=== PATIENT | female | born 1980 | race American Indian/Alaskan Native ===

== ENCOUNTER 2019-10-17 08:46 | Emergency (ER) | payer SELFPAY ==
[2019-10-17 08:55] VITALS: BP 147/80
--- NOTE | 2019-10-17 11:38 | Emergency Department Report ---
Chief Complaint: Urogenital-Female Stated Complaint: LUMP ON BREAST Time Seen by Provider: 10/17/19 11:16 - HPI History of Present Illness: Patient is a 39-year-old female presents emergency room with complaints of a lump to her left breast that began a couple days ago. She states she hasn't seen TELEVISION REPORTER in approximately a year. She states she had a normal mammogram in 2016. She denies any skin changes, erythema, increased warmth, drainage, nipple discharge, blood from the nipple. She denies any family history of breast cancer. She denies any past medical history. She denies any allergies medications. She states her last menstrual cycle was 09/24/2019. BRISEYDA hernandez RN present during examination left breast: 1.5 cm nodule present directly underneath the nipple, no nipple retraction, no nipple discharge, no Peau d'orange, no increased warmth, no erythema, no induration, no TTP, normal left axilla Patient will be referred to an TELEVISION REPORTER to receive mammogram testing There is no medical emergency at this time, medical screening examination performed Could be related to a fibroadenoma versus nodule, discussed the importance of mammogram testing with the patient - Exam Vital Signs: Vital Signs 10/17/19 08:54 Temperature 98.5 F Pulse Rate 81 Respiratory 16 Rate Blood Pressure 147/80 O2 Sat by Pulse 100 Oximetry MSE screening note: Focused history and physical exam performed. Due to findings the following was ordered: ED Disposition for MSE Clinical Impression: Breast nodule Disposition: Z-[id number] [facility] SCREENING EXAM-LEFT Is pt being admited?: No Does the pt Need Aspirin: No Condition: Stable Additional Instructions: Please follow up with an TELEVISION REPORTER to receive mammogram testing. It is very important that you follow-up. Return to the emergency room for any new or worsening symptoms. Referrals: [facility] [Provider Group] - 2-3 Days [facility] [Provider Group] - 2-3 Days [facility] [Provider Group] - 2-3 Days CARMINE GILLESPIE MD [Staff Physician] - 2-3 Days Time of Disposition: 11:37 Print Language: SLOVAK
== END 2019-10-17 11:50 | disposition left against medical advice (07) ==
LOC: ED 08:46
DX: N63.0 Unspecified lump in unspecified breast (principal)
CPT/HCPCS: 99281

== ENCOUNTER 2022-03-02 11:12 | Inpatient (IN) | payer OTHER ==
[2022-03-02] MEDS ORDERED: ONDANSETRON 4 MG/2 ML INJ IV ONE (14:06)
[2022-03-02] MEDS ORDERED: MORPHINE 4 MG/1 ML INJ IV ONE (14:06)
[2022-03-02] MEDS ORDERED: SODIUM CHLORIDE 0.9% 1000 ML 1,000 ML IV ONE (14:06)
[2022-03-02 14:45] LABS: Basophils # (Auto) 0.1 K/mm3 (0.0-0.1); Basophils % (Auto) 1.2 % (0.0-1.8); Eosinophils # (Auto) 0.1 K/mm3 (0.0-0.4); Eosinophils % (Auto) 1.2 % (0.0-4.3); Hematocrit 29.9 % (30.3-42.9); Hemoglobin 9.2 gm/dl (10.1-14.3); Lymphocytes # (Auto) 2.1 K/mm3 (1.2-5.4); Lymphocytes % (Auto) 28.1 % (13.4-35.0); Mean Corpuscular HGB Conc 31 % (30-34); Mean Corpuscular Volume 73 fl (79-97); Monocytes # (Auto) 0.6 K/mm3 (0.0-0.8); Monocytes % (Auto) 7.6 % (0.0-7.3); Platelet Count 353 K/mm3 (140-440); Red Blood Count 4.11 M/mm3 (3.65-5.03); Red Cell Distribution Width 18.6 % (13.2-15.2)
[2022-03-02 15:11] LABS: Alanine Aminotransferase 9 units/L (7-56); Albumin 4.4 g/dL (3.9-5); BUN/Creatinine Ratio 14; Blood Urea Nitrogen 14 mg/dL (7-17); Hemolysis Index 4
[2022-03-02 15:13] LABS: Bilirubin,Direct < 0.2 mg/dL (0-0.2)
--- NOTE | 2022-03-02 16:23 | Cat Scan Report ---
CT ABDOMEN AND PELVIS WITH CONTRAST HISTORY: abd pain with nausea COMPARISON: None TECHNIQUE: Routine abdominal and pelvic CT exam performed following intravenous contrast administrat ion.. All CT scans at this location are performed using CT dose reduction for ALARA by means of autom ated exposure control. FINDINGS: CT ABDOMEN: Lung Bases: No significant abnormality. Liver: No significant abnormality. Biliary: Gallbladder is surgically absent. There is pneumobilia likely related to previous enterotomy . Spleen: No significant abnormality. Unenlarged. Pancreas: No significant abnormality. Adrenals: No significant abnormality. Kidneys: No significant abnormality. Lymphatics: No lymphadenopathy. Vasculature: No significant abnormality. Bowel/Peritoneum: There is mild distention of the proximal small bowel with transition to nondistende d bowel in the left mid abdomen. CT PELVIC: : No significant abnormality. Lymphatics: No lymphadenopathy. Osseous Structures: No aggressive appearing osseous lesions. Additional Findings: None IMPRESSION: 1. Mild proximal small bowel obstruction with transition point in the left midabdomen. No free air or pneumatosis. Signer Name: Nithin Mayes MD Signed: 03/02/2022 4:19 PM Workstation Name: [id number]
[2022-03-02] MEDS ORDERED: HYDROmorphone 1 MG/1 ML INJ IV ONE (16:26)
--- NOTE | 2022-03-02 16:31 | Emergency Department Report ---
ED Abdominal Pain HPI - General Chief Complaint: Abdominal Pain Stated Complaint: ABDOMINAL Time Seen by Provider: 03/02/22 14:01 Source: EMS Mode of arrival: Stretcher Limitations: No Limitations - History of Present Illness Initial Comments: This is a 41-year-old female nontoxic, well nourished in appearance, no acute signs of distress presents to the ED with c/o of nausea and abdominal pain that started this morning. Patient denies any vomiting. Patient describes abdominal pain as cramping and aching with level of 8/10 to left mid and upper abdomen area. Patient denies chest pain, short of breath, fever, hemoptysis, blood in stool, chills, headache, stiff neck, numbness or tingling. Patient denies any diarrhea or constipation. Denies any blood in stool. Patient denies any recent travels. Patient denies any allergies. MD Complaint: abdominal pain -: This morning Location: LUQ Radiation: none Migration to: no migration Severity: mild Severity scale (0 -10): 8 Quality: cramping, aching Consistency: constant Improves With: nothing Worsens With: nothing Associated Symptoms: nausea. denies: vomiting, diarrhea, fever, chills, cons tipation, dysuria, hematemesis, hematochezia, melena, hematuria, anorexia, syncope - Related Data Home Medications Medication Instructions Recorded Confirmed Last Taken No Known Home Medications [No 03/02/22 03/02/22 Unknown Reported Home Medications] Allergies Allergy/AdvReac Type Severity Reaction Status Date / Time No Known Allergies Allergy Verified 03/02/22 11:20 ED Review of Systems ROS: Stated complaint: ABDOMINAL Other details as noted in HPI Comment: All other systems reviewed and negative Constitutional: denies: chills, fever Eyes: denies: eye pain, eye discharge, vision change ENT: denies: ear pain, throat pain Respiratory: denies: cough, shortness of breath, wheezing Cardiovascular: denies: chest pain, palpitations Endocrine: no symptoms reported Gastrointestinal: abdominal pain, nausea. denies: vomiting, diarrhea, constipation, hematemesis, melena, hematochezia Genitourinary: denies: urgency, dysuria, discharge Musculoskeletal: denies: back pain, joint swelling, arthralgia Skin: denies: rash, lesions Neurological: denies: headache, weakness, paresthesias Psychiatric: denies: anxiety, depression Hematological/Lymphatic: denies: easy bleeding, easy bruising ED Past Medical Hx - Past Medical History Previous Medical History?: No - Surgical History Hx Appendectomy: Yes Additional Surgical History: gallstone removal - Social History Smoking Status: Never Smoker Substance Use Type: None - Medications Home Medications: Home Medications Medication Instructions Recorded Confirmed Last Taken Type No Known Home Medications [No 03/02/22 03/02/22 Unknown History Reported Home Medications] ED Physical Exam - General Limitations: No Limitations General appearance: alert, in no apparent distress - Head Head exam: Present: atraumatic, normocephalic - Eye Eye exam: Present: normal appearance - Neck Neck exam: Present: normal inspection, full ROM. Absent: lymphadenopathy - Respiratory Respiratory exam: Present: normal lung sounds bilaterally. Absent: respiratory distress, wheezes, rales, rhonchi, stridor, chest wall tenderness, accessory muscle use, decreased breath sounds, prolonged expiratory - Cardiovascular Cardiovascular Exam: Present: regular rate, normal rhythm, normal heart sounds. Absent: bradycardia, tachycardia, irregular rhythm, systolic murmur, diastolic murmur, rubs, gallop - GI/Abdominal GI/Abdominal exam: Present: tenderness (LUQ). Absent: distended, guarding, rebound, rigid, diminished bowel sounds - Extremities Exam Extremities exam: Present: full ROM - Back Exam Back exam: Present: normal inspection, full ROM. Absent: tenderness, CVA tenderness (R), CVA tenderness (L), muscle spasm, paraspinal tenderness, vertebral tenderness, rash noted - Neurological Exam Neurological exam: Present: alert, oriented X3, normal gait - Psychiatric Psychiatric exam: Present: normal affect, normal mood - Skin Skin exam: Present: warm, dry, intact, normal color. Absent: rash ED Course Vital Signs 03/02/22 03/02/22 11:13 14:06 Temperature 98.5 F 98.1 F Pulse Rate 92 H 66 Respiratory 16 18 Rate Blood Pressure 150/90 151/79 [Left] O2 Sat by Pulse 98 99 Oximetry - Reevaluation(s) Reevaluation #1: 03/02/22 16:28 Patient is speaking in full sentences with no signs of distress noted. - Consultations Consultation #1: 03/02/22 16:41 Patient has been consulted with Dr. Sanches about patient history, physical exam, and labs/imaging results and patient to be admitted with hospitalist on n.p.o. and NG tube on low suction. Consultation #2: 03/02/22 16:46 Patient has been consulted with Dr. Benoit (hospitalist) about patient history, physical exam, and labs/imaging results and accepts patient to services. ED Medical Decision Making - Lab Data Result diagrams: 03/02/22 14:32 03/02/22 14:32 Lab Results 03/02/22 03/02/22 03/02/22 Range/Units 14:32 14:32 14:32 WBC 7.6 (4.5-11.0) K/mm3 RBC 4.11 (3.65-5.03) M/mm3 Hgb 9.2 L (10.1-14.3) gm/dl Hct 29.9 L (30.3-42.9) % MCV 73 L (79-97) fl MCH 22 L (28-32) pg MCHC 31 (30-34) % RDW 18.6 H (13.2-15.2) % Plt Count 353 (140-440) K/mm3 Lymph % (Auto) 28.1 (13.4-35.0) % [place] % (Auto) 7.6 H (0.0-7.3) % Eos % (Auto) 1.2 (0.0-4.3) % Baso % (Auto) 1.2 (0.0-1.8) % Lymph # (Auto) 2.1 (1.2-5.4) K/mm3 [place] # (Auto) 0.6 (0.0-0.8) K/mm3 Eos # (Auto) 0.1 (0.0-0.4) K/mm3 Baso # (Auto) 0.1 (0.0-0.1) K/mm3 Seg Neutrophils % 61.9 (40.0-70.0) % Seg Neutrophils # 4.7 (1.8-7.7) K/mm3 Sodium 138 (137-145) mmol/L Potassium 4.2 (3.6-5.0) mmol/L Chloride 105.8 (98-107) mmol/L Carbon Dioxide 22 (22-30) mmol/L Anion Gap 14 mmol/L BUN 14 (7-17) mg/dL Creatinine 1.0 (0.6-1.2) mg/dL Estimated GFR > 60 ml/min BUN/Creatinine Ratio 14 % Glucose 91 (65-100) mg/dL Calcium 9.0 (8.4-10.2) mg/dL Total Bilirubin 0.20 (0.1-1.2) mg/dL Direct Bilirubin < 0.2 (0-0.2) mg/dL Indirect Bilirubin 0.0 mg/dL AST 13 (5-40) units/L ALT 9 (7-56) units/L Alkaline Phosphatase 73 (35-129) units/L Total Protein 7.7 (6.3-8.2) g/dL Albumin 4.4 (3.9-5) g/dL Albumin/Globulin Ratio 1.3 % Lipase 28 (13-60) units/L HCG, Qual Negative (Negative) - Radiology Data [facility] [address] [id number] Cat Scan Report Signed Patient: HOLLEY LLAMAS MR# : [id number] : 1980 Acct:[id number] Age/Sex: 41 / F ADM Date: 03/02/22 Loc: ED Attending Dr: Ordering Physician: GRACIA FISHMAN NP Date of Service: 03/02/22 Procedure(s): CT abdomen pelvis w con Accession Number(s): [id number] cc: GRACIA FISHMAN NP CT ABDOMEN AND PELVIS WITH CONTRAST HISTORY: abd pain with nausea COMPARISON: None TECHNIQUE: Routine abdominal and pelvic CT exam performed following intravenous contrast administration.. All CT scans at this location are performed using CT dose reduction for ALARA by means of automated exposure control. FINDINGS: CT ABDOMEN: Lung Bases: No significant abnormality. Liver: No significant abnormality. Biliary: Gallbladder is surgically absent. There is pneumobilia likely related to previous enterotomy. Spleen: No significant abnormality. Unenlarged. Pancreas: No significant abnormality. Adrenals: No significant abnormality. Kidneys: No significant abnormality. Lymphatics: No lymphadenopathy. Vasculature: No significant abnormality. Bowel/Peritoneum: There is mild distention of the proximal small bowel with transition to nondistended bowel in the left mid abdomen. CT PELVIC: : No significant abnormality. Lymphatics: No lymphadenopathy. Osseous Structures: No aggressive appearing osseous lesions. Additional Findings: None IMPRESSION: 1. Mild proximal small bowel obstruction with transition point in the left midabdomen. No free air or pneumatosis. Signer Name: Nithin Mayes MD Signed: 03/02/2022 4:19 PM Workstation Name: [id number] Transcribed By: YOLANDA Dictated By: Nithin Mayes MD Electronically Authenticated By: Nithin Mayes MD Signed Date/Time: 03/02/221618 DD/ 17 TD/TT: - Medical Decision Making 41-year-old female that presents with small bowel obstruction. Patient is stable and was examined by me. Patient consulted with Dr. Sanches general surgery. NG tube has been placed by RN. Patient placed on n.p.o. Patient is notified of the CT and lab results with no questions noted by the patient. Patient admitted with hospitalist Dr. Benoit. Vital signs are stable at discharge. At time of admission, the patient does not seem toxic or ill in appearance. No acute signs of distress noted. Patient agrees to admission treatment plan of care. No further questions noted by the patient. Critical care attestation.: If time is entered above; I have spent that time in minutes in the direct care of this critically ill patient, excluding procedure time. ED Disposition Clinical Impression: Small bowel obstruction Disposition: ADMITTED INPATIENT Is pt being admited?: Yes Condition: Stable Instructions: Abdominal Pain (ED) Time of Disposition: 16:34
[2022-03-02] MEDS ORDERED: ACETAMINOPHEN 650 MG RECT SUPP PR PRN (16:46)
[2022-03-02] MEDS ORDERED: ALBUTEROL 2.5 MG/3 ML NEBU IH PRN (16:46)
[2022-03-02] MEDS ORDERED: ACETAMINOPHEN 325 MG TAB PO PRN ×2 (16:46→16:49)
[2022-03-02] MEDS ORDERED: HYDROmorphone 0.5 MG/0.5 ML INJ IV PRN ×2 (16:46→16:49)
--- NOTE | 2022-03-02 16:46 | History and Physical Report ---
History of Present Illness Chief complaint: My stomach hurts History of present illness: 41 YO Female with Obesity presents to ED for evaluation. Patient reports "my stomach hurts". Patient states that she experienced a sudden onset of abdominal pain that began this morning. Patient states that pain is 8/10, constant, localized to the epigastric area, crampy in nature, nonradiating. Patient acknowledges nausea, but denies vomiting. Patient acknowledges inability to tolerate oral intake. EMS was notified and upon arrival the patient was found to be in distress and subsequently transported to [facility] for further care and evaluation of the aforementioned symptoms. The patient was seen and evaluated in the emergency department. All lab and imaging studies reviewed. Patient underwent CT scan of the abdomen and pelvis and was found to have a small bowel obstruction complicated by intractable nausea vomiting. Patient admitted to medical floor due to increased risk of worsening symptoms and for medical sta bilization. Surgery team consulted in ED. Patient underwent NG tube placement for gastric decompression. Patient denies fever, chills, chest pain, palpitation, adductive cough, skin rash, recent contact, ingestion of food/water from new or different sources, hemoptysis, bright red blood per rectum, or known exposure to COVID-19. No prior admission for review. No medication listed at time of admission for reconciliation. Advanced care planning conducted in ED. Past History Past Medical History: other (See HPI) Past Surgical History: appendectomy Social history: , lives with family. denies: smoking, alcohol abuse, prescription drug abuse Family history: hypertension Medications and Allergies Allergies Allergy/AdvReac Type Severity Reaction Status Date / Time No Known Allergies Allergy Verified 03/02/22 11:20 Home Medications Medication Instructions Recorded Confirmed Last Taken Type No Known Home Medications [No 03/02/22 03/02/22 Unknown History Reported Home Medications] Review of Systems Constitutional: no weight loss, no fever, no chills, no sweats Ears, nose, mouth and throat: no ear pain, no tinnitis, no nose pain, no nasal discharge Breasts: no change in shape, no mass Cardiovascular: no chest pain, no orthopnea, no rapid/irregular heart beat, no edema, no lightheadedness Respiratory: no cough, no cough with sputum, no dyspnea on exertion Gastrointestinal: abdominal pain, nausea, no constipation, no hematemesis, no coffee ground emesis, no hematochezia Genitourinary Female: no pelvic pain, no flank pain, no dysuria, no urinary frequency, no urgency Rectal: no pain Musculoskeletal: no neck stiffness, no neck pain, no shooting arm pain, no arm numbness/tingling, no leg numbness/tingling Integumentary: no rash, no pruritis, no redness, no sores, no wounds Neurological: no head injury, no paralysis, no parathesias, no numbness, no syncope, no tremors, no lack of coordination Psychiatric: no anxiety, no change in sleep habits, no insomnia, no change in libido, no disorientation, no hallucinations Endocrine: no cold intolerance, no heat intolerance, no polyphagia, no excessive thirst, no polydipsia, no polyuria, no nocturia, no flushing Hematologic/Lymphatic: no easy bruising, no easy bleeding Allergic/Immunologic: no allergic rhinitis, no wheezing Exam - Constitutional Vitals: Temp Pulse Resp BP Pulse Ox 98.1 F 66 18 151/79 99 03/02/22 14:06 03/02/22 14:06 03/02/22 14:06 03/02/22 14:06 03/02/22 14:06 General appearance: Present: mild distress, obese - EENT Eyes: Present: PERRL ENT: hearing intact, clear oral mucosa - Neck Neck: Present: supple, normal ROM - Respiratory Respiratory effort: normal Respiratory: bilateral: CTA - Cardiovascular Heart Sounds: Present: S1 & S2. Absent: rub, click - Extremities Extremities: pulses symmetrical, No edema Peripheral Pulses: within normal limits - Abdominal General gastrointestinal: Present: soft, non-tender, tender, normal bowel sounds. Absent: hepatomegaly, splenomegaly, mass, hernia Female genitourinary: Present: normal - Integumentary Integumentary: Present: clear, warm, dry - Musculoskeletal Musculoskeletal: gait normal, strength equal bilaterally - Psychiatric Psychiatric: appropriate mood/affect, intact judgment & insight - Neurologic Neurologic: CNII-XII intact, moves all extremities Results - Labs CBC & Chem 7: 03/02/22 14:32 03/02/22 14:32 Labs: Abnormal lab results 03/02/22 Range/Units 14:32 Hgb 9.2 L (10.1-14.3) gm/dl Hct 29.9 L (30.3-42.9) % MCV 73 L (79-97) fl MCH 22 L (28-32) pg RDW 18.6 H (13.2-15.2) % [place] % (Auto) 7.6 H (0.0-7.3) % Assessment and Plan - Patient Problems (1) Small bowel obstruction Current Visit: No Status: Acute Plan to address problem: Surgery team consulted in ED, bowel rest, IV fluid resuscitation therapy, CT scan abdomen pelvis, serial abdominal exam, NG tube to low wall suction, pain control. Antiemetic therapy. (2) Obesity (BMI 30.0-34.9) Current Visit: Yes Status: Acute Plan to address problem: Balanced diet, increase physical activity discharge, outpatient pulmonary follow-up for sleep study, balanced diet, weight reduction. (3) Intractable nausea and vomiting Current Visit: Yes Status: Acute Plan to address problem: Antiemetic therapy, bowel rest, IV fluid resuscitation therapy. (4) DVT prophylaxis Current Visit: Yes Status: Acute (5) Advance care planning Current Visit: Yes Status: Acute Plan to address problem: Disease education data, care plan discussed, diagnosis discussed, prognosis discussed, patient is full code. Patient acknowledged understanding and agreed with care plan, +30 minutes. (6) Preventative health care Current Visit: Yes Status: Acute Plan to address problem: Patient counseled regarding balanced diet, increase physical activity discharge, weight reduction. Patient instructed to follow-up with primary care physician for all age and risk factor appropriate screening test. +30 minutes.
[2022-03-02] MEDS ORDERED: oxyCODONE /ACETAMINOPHEN 5-325MG TAB PO PRN (16:49)
[2022-03-02] MEDS ORDERED: ONDANSETRON 4 MG/2 ML INJ IV PRN (16:49)
[2022-03-02 17:21] LABS: Bilirubin,Urine Negative (Negative); Blood,Urine Negative (Negative); Color,Urine Yellow (Yellow)
[2022-03-02 17:22] LABS: Protein,Urine <15 mg/dL mg/dL (Negative)
[2022-03-02 17:26] LABS: Bacteria,Urine 1+ /HPF (Negative)
[2022-03-02] MEDS: MORPHINE 2 MG/1 ML INJ IV PRN (20:09)
[2022-03-02] MEDS: ONDANSETRON 4 MG/2 ML INJ IV PRN (20:14)
[2022-03-02] MEDS: SODIUM CHLORIDE 0.9% 1000 ML 1,000 ML IV SCH (23:13)
[2022-03-03] MEDS: MORPHINE 2 MG/1 ML INJ IV PRN (04:54)
[2022-03-03] MEDS: ONDANSETRON 4 MG/2 ML INJ IV PRN ×2 (05:01→07:49)
[2022-03-03 05:27] LABS: Alanine Aminotransferase 9 units/L (7-56); Albumin 4.2 g/dL (3.9-5); Blood Urea Nitrogen 11 mg/dL (7-17); Calcium 8.7 mg/dL (8.4-10.2); Hemolysis Index 4
[2022-03-03 05:30] LABS: BUN/Creatinine Ratio 18
[2022-03-03 05:59] LABS: Basophils % (Auto) 0.2 % (0.0-1.8); Lymphocytes # (Auto) 0.8 K/mm3 (1.2-5.4); Lymphocytes % (Auto) 7.5 % (13.4-35.0); Mean Corpuscular HGB Conc 30 % (30-34); Mean Corpuscular Volume 72 fl (79-97); Monocytes # (Auto) 0.3 K/mm3 (0.0-0.8); Monocytes % (Auto) 2.5 % (0.0-7.3); Platelet Count 328 K/mm3 (140-440); Red Blood Count 4.92 M/mm3 (3.65-5.03); Red Cell Distribution Width 18.9 % (13.2-15.2)
[2022-03-03 06:00] LABS: Hemoglobin 10.7 gm/dl (10.1-14.3)
[2022-03-03 06:01] LABS: Hematocrit 35.5 % (30.3-42.9)
--- NOTE | 2022-03-03 09:23 | Progress Note ---
Assessment and Plan Assessment and plan: - Patient Problems --Small bowel obstruction Surgery team consulted in ED, bowel rest, IV fluid resuscitation therapy, CT scan abdomen pelvis, serial abdominal exam, NG tube to low wall suction, pain control. Antiemetic therapy. --Obesity (BMI 30.0-34.9) Balanced diet, increase physical activity discharge, outpatient pulmonary follow-up for sleep study, balanced diet, weight reduction. -- Intractable nausea and vomiting Antiemetic therapy, bowel rest, IV fluid resuscitation therapy. --Urinary tract infection; polyuria Empiric antibiotics with Rocephin Urine cultures IV fluids and supportive care DVT prophylaxis --Advance care planning Disease education data, care plan discussed, diagnosis discussed, prognosis discussed, patient is full code. Patient acknowledged understanding and agreed with care plan, +30 minutes. -- Preventative health care Patient counseled regarding balanced diet, increase physical activity discharge, weight reduction. Patient instructed to follow-up with primary care physician for all age and risk factor appropriate screening test. +30 minutes. Closely monitor the patient and adjust management as needed Plan of care reviewed with the patient and her nurse I also discussed the case with surgeon Dr. Sanches Follow abdominal x-ray tomorrow 03/03/2022; partial small bowel obstruction, n.p.o. status IV fluids, serial abdominal x-ray, follow surgery recommendations Possible discharge in 1 to 2 days if stable History Interval history: I have seen and examined the patient at the bedside Patient's chart and medications reviewed Patient with partial small bowel obstruction n.p.o. status Surgery following Patient complains of mild abdominal discomfort Vital signs noted Hospitalist Physical - Constitutional Vitals: Temp Pulse Resp BP Pulse Ox 98.1 F 67 19 110/66 97 03/03/22 05:47 03/03/22 05:47 03/03/22 05:47 03/03/22 05:47 03/03/22 05:47 General appearance: Present: mild distress, well-nourished, obese - EENT Eyes: Present: PERRL, EOM intact - Neck Neck: Present: supple, normal ROM - Respiratory Respiratory effort: normal Respiratory: bilateral: diminished, rales, negative: rhonchi, wheezing - Cardiovascular Rhythm: regular Heart Sounds: Present: S1 & S2 - Extremities Extremities: no ischemia, No edema - Abdominal General gastrointestinal: soft, non-tender, non-distended, normal bowel sounds - Integumentary Integumentary: Present: clear, warm - Psychiatric Psychiatric: appropriate mood/affect, cooperative - Neurologic Neurologic: CNII-XII intact, moves all extremities Results - Labs CBC & Chem 7: 03/03/22 04:30 03/03/22 04:30 Labs: Laboratory Last Values WBC 10.2 K/mm3 (4.5-11.0) 03/03/22 04:30 RBC 4.92 M/mm3 (3.65-5.03) 03/03/22 04:30 Hgb 10.7 gm/dl (10.1-14.3) 03/03/22 04:30 Hct 35.5 % (30.3-42.9) 03/03/22 04:30 MCV 72 fl (79-97) L 03/03/22 04:30 MCH 22 pg (28-32) L 03/03/22 04:30 MCHC 30 % (30-34) 03/03/22 04:30 RDW 18.9 % (13.2-15.2) H 03/03/22 04:30 Plt Count 328 K/mm3 (140-440) 03/03/22 04:30 Lymph % (Auto) 7.5 % (13.4-35.0) L 03/03/22 04:30 Sunflower % (Auto) 2.5 % (0.0-7.3) 03/03/22 04:30 Eos % (Auto) 0.0 % (0.0-4.3) 03/03/22 04:30 Baso % (Auto) 0.2 % (0.0-1.8) 03/03/22 04:30 Lymph # (Auto) 0.8 K/mm3 (1.2-5.4) L 03/03/22 04:30 Sunflower # (Auto) 0.3 K/mm3 (0.0-0.8) 03/03/22 04:30 Eos # (Auto) 0.0 K/mm3 (0.0-0.4) 03/03/22 04:30 Baso # (Auto) 0.0 K/mm3 (0.0-0.1) 03/03/22 04:30 Seg Neutrophils % 89.8 % (40.0-70.0) H 03/03/22 04:30 Seg Neutrophils # 9.1 K/mm3 (1.8-7.7) H 03/03/22 04:30 Sodium 137 mmol/L (137-145) 03/03/22 04:30 Potassium 4.2 mmol/L (3.6-5.0) 03/03/22 04:30 Chloride 103.7 mmol/L (98-107) 03/03/22 04:30 Carbon Dioxide 24 mmol/L (22-30) 03/03/22 04:30 Anion Gap 14 mmol/L 03/03/22 04:30 BUN 11 mg/dL (7-17) 03/03/22 04:30 Creatinine 0.6 mg/dL (0.6-1.2) 03/03/22 04:30 Estimated GFR > 60 ml/min 03/03/22 04:30 BUN/Creatinine Ratio 18 % 03/03/22 04:30 Glucose 114 mg/dL (65-100) H 03/03/22 04:30 Calcium 8.7 mg/dL (8.4-10.2) 03/03/22 04:30 Magnesium 1.90 mg/dL (1.7-2.3) 03/03/22 04:30 Total Bilirubin 0.40 mg/dL (0.1-1.2) 03/03/22 04:30 Direct Bilirubin < 0.2 mg/dL (0-0.2) 03/02/22 14:32 Indirect Bilirubin 0.0 mg/dL 03/02/22 14:32 AST 13 units/L (5-40) 03/03/22 04:30 ALT 9 units/L (7-56) 03/03/22 04:30 Alkaline Phosphatase 81 units/L (35-129) 03/03/22 04:30 Total Protein 7.9 g/dL (6.3-8.2) 03/03/22 04:30 Albumin 4.2 g/dL (3.9-5) 03/03/22 04:30 Albumin/Globulin Ratio 1.1 % 03/03/22 04:30 Lipase 28 units/L (13-60) 03/02/22 14:32 HCG, Qual Negative (Negative) 03/02/22 14:32 Urine Color Yellow (Yellow) 03/02/22 Unknown Urine Turbidity Clear (Clear) 03/02/22 Unknown Urine pH 5.0 (5.0-7.0) 03/02/22 Unknown Ur Specific [place] 1.025 (1.003-1.030) 03/02/22 Unknown Urine Protein <15 mg/dl mg/dL (Negative) 03/02/22 Unknown Urine Glucose (UA) 0.0 mg/dL (Negative) 03/02/22 Unknown Urine Ketones Negative mg/dL (Negative) 03/02/22 Unknown Urine Blood Negative (Negative) 03/02/22 Unknown Urine Nitrite Negative (Negative) 03/02/22 Unknown Urine Bilirubin Negative (Negative) 03/02/22 Unknown Urine Urobilinogen 0.0 mg/dL (<2.0) 03/02/22 Unknown Ur Leukocyte Esterase 2+ (Negative) 03/02/22 Unknown Urine WBC (Auto) 130.0 /HPF (0.0-6.0) H 03/02/22 Unknown Urine RBC (Auto) 19.0 /HPF (0.0-6.0) 03/02/22 Unknown U Epithel Cells (Auto) 78.0 /HPF (0-13.0) H 03/02/22 Unknown Urine Bacteria (Auto) 1+ /HPF (Negative) 03/02/22 Unknown Urine Yeast (Budding) 1+ /HPF 03/02/22 Unknown Woodson/IV: Voiding Method Toilet Active Medications - Current Medications Current Medications: Generic Name Dose Route Start Last Admin Trade Name Freq PRN Reason Stop Dose Admin Acetaminophen 650 mg 03/02/22 16:46 Acetaminophen 325 Mg Tab PO Q4H PRN Pain MILD(1-3)/Fever >100.5/CHRISTIANSEN Acetaminophen 650 mg 03/02/22 16:46 Acetaminophen 650 Mg Rect Supp IN Q4H PRN Pain MILD(1-3)/Fever >100.5/CHRISTIANSEN Acetaminophen 650 mg 03/02/22 16:49 Acetaminophen 325 Mg Tab PO Q4H PRN Pain MILD(1-3)/Fever >100.5/CHRISTIANSEN Albuterol 2.5 mg 03/02/22 16:46 Albuterol 2.5 Mg/3 Ml Nebu IH Q4HRT PRN Shortness Of Breath Hydromorphone HCl 0.5 mg 03/02/22 16:46 03/03/22 07:49 Hydromorphone 0.5 Mg/0.5 Ml Inj IV 0.5 mg Q12H PRN Administration Pain , Severe (7-10) Hydromorphone HCl 0.5 mg 03/02/22 16:49 03/03/22 01:02 Hydromorphone 0.5 Mg/0.5 Ml Inj IV 0.5 mg Q3H PRN Administration Pain , Severe (7-10) Sodium Chloride 1,000 mls @ 125 mls/hr 03/02/22 17:00 03/02/22 23:13 Nacl 0.9% 1000 Ml IV 125 mls/hr DIRECT LOGAN Administration Morphine Sulfate 2 mg 03/02/22 16:46 03/03/22 04:54 Morphine 2 Mg/1 Ml Inj IV 2 mg Q8H PRN Administration Pain, Moderate (4-6) Ondansetron HCl 4 mg 03/02/22 16:46 03/03/22 07:49 Ondansetron 4 Mg/2 Ml Inj IV 4 mg Q8H PRN Administration Nausea And Vomiting Ondansetron HCl 4 mg 03/02/22 16:49 Ondansetron 4 Mg/2 Ml Inj IV Q8H PRN Nausea And Vomiting Oxycodone/Acetaminophen 1 tab 03/02/22 16:49 Oxycodone /Acetaminophen 5-325mg Tab PO Q6H PRN Pain, Moderate (4-6) Sodium Chloride 10 ml 03/02/22 22:00 03/02/22 23:09 Sodium Chloride 0.9% 10 Ml Flush Syringe IV 10 ml BID LOGAN Administration Sodium Chloride 10 ml 03/02/22 16:46 Sodium Chloride 0.9% 10 Ml Flush Syringe IV PRN PRN LINE FLUSH Sodium Chloride 10 ml 03/02/22 22:00 03/02/22 23:09 Sodium Chloride 0.9% 10 Ml Flush Syringe IV Not Given BID LOGAN Sodium Chloride 10 ml 03/02/22 16:49 Sodium Chloride 0.9% 10 Ml Flush Syringe IV PRN PRN LINE FLUSH
--- NOTE | 2022-03-03 09:25 | XRay Report ---
XR abd series w cxr 1V INDICATION / CLINICAL INFORMATION: sbo. COMPARISON: CT from yesterday, 03/02/2022 FINDINGS: TUBES / LINES: None. CHEST: Visualized chest shows no significant abnormality. BOWEL GAS PATTERN: No gas pattern is unchanged. Short segment of small bowel in the central abdomen r emains prominent. FREE AIR / EXTRALUMINAL GAS: No discrete pneumoperitoneum. Known pneumobilia is not well seen. ADDITIONAL FINDINGS: No significant additional findings. IMPRESSION: Short segment of small bowel in the central abdomen remains prominent. No significant change from jori or study. Signer Name: Viktor Ferrari MD Signed: 03/03/2022 9:20 AM Workstation Name: [id number]
[2022-03-03] MEDS: cefTRIAXone/NS 2 GM/100 ML 2 GM/100 ML BAG IV SCH (10:00)
--- NOTE | 2022-03-03 10:33 | Consultation ---
History of Present Illness Consult date: 03/03/22 Reason for consult: abdominal pain Chief complaint: abd pain - History of present illness History of present illness: 41-year-old female with a past surgical history of open cholecystectomy, open appendectomy who presents to the emergency room with a 1 day history of abdominal pain. The patient states that she went to lunch with her coworkers and after eating started experiencing left upper abdominal pain which was crampy in nature and did not radiate. She states that she had nausea at that time and was not feeling well and alerted her compensation programs manager. At this point EMS was called and she was brought to the emergency room for evaluation. The patient states she has never had symptoms like this before. The patient states that her pain is improved after she vomits. She had 2 episodes of vomiting since being admitted which she states were green and acidic. She states that her pain is much improved at this time. It feels more like a soreness and is dull. She is hungry and is asking if she can have something to eat. An NG tube was requested and placed however the patient remove this due to discomfort and refused to have another one placed. She denies fevers, chills, chest pain, shortness of breath. She states that she had a normal bowel movement yesterday. She has not passed flatus or had a bowel movement since yesterday. Patient states that she had an open cholecystectomy in [place] in the . She states that her abdomen was opened once and gallstones removed and 2 weeks later she had to return to the operating room for another exploratory surgery for the gallbladder. She cannot elaborate further. Past History Past Medical History: other (See HPI) Past Surgical History: appendectomy (Open), cholecystectomy (Open), Other (Exploratory laparotomy) Social history: , lives with family. denies: smoking, alcohol abuse, prescription drug abuse Family history: hypertension Medications and Allergies Allergies Allergy/AdvReac Type Severity Reaction Status Date / Time No Known Allergies Allergy Verified 03/02/22 11:20 Home Medications Medication Instructions Recorded Confirmed Last Taken Type No Known Home Medications [No 03/02/22 03/02/22 Unknown History Reported Home Medications] Active Meds: Active Medications Acetaminophen (Acetaminophen 325 Mg Tab) 650 mg PO Q4H PRN PRN Reason: Pain MILD(1-3)/Fever >100.5/CHRISTIANSEN Acetaminophen (Acetaminophen 650 Mg Rect Supp) 650 mg [place] Q4H PRN PRN Reason: Pain MILD(1-3)/Fever >100.5/CHRISTIANSEN Acetaminophen (Acetaminophen 325 Mg Tab) 650 mg PO Q4H PRN PRN Reason: Pain MILD(1-3)/Fever >100.5/CHRISTIANSEN Albuterol (Albuterol 2.5 Mg/3 Ml Nebu) 2.5 mg IH Q4HRT PRN PRN Reason: Shortness Of Breath Hydromorphone HCl (Hydromorphone 0.5 Mg/0.5 Ml Inj) 0.5 mg IV Q12H PRN PRN Reason: Pain , Severe (7-10) Last Admin: 03/03/22 07:49 Dose: 0.5 mg Hydromorphone HCl (Hydromorphone 0.5 Mg/0.5 Ml Inj) 0.5 mg IV Q3H PRN PRN Reason: Pain , Severe (7-10) Last Admin: 03/03/22 01:02 Dose: 0.5 mg Sodium Chloride (Nacl 0.9% 1000 Ml) 1,000 mls @ 125 mls/hr IV DIRECT LOGAN Last Admin: 03/02/22 23:13 Dose: 125 mls/hr Ceftriaxone Sodium (Rocephin/Ns 2 Gm/100 Ml) 2 gm in 100 mls @ 200 mls/hr IV Q24H LOGAN; Protocol Last Admin: 03/03/22 10:00 Dose: 200 mls/hr Morphine Sulfate (Morphine 2 Mg/1 Ml Inj) 2 mg IV Q8H PRN PRN Reason: Pain, Moderate (4-6) Last Admin: 03/03/22 04:54 Dose: 2 mg Ondansetron HCl (Ondansetron 4 Mg/2 Ml Inj) 4 mg IV Q8H PRN PRN Reason: Nausea And Vomiting Last Admin: 03/03/22 07:49 Dose: 4 mg Ondansetron HCl (Ondansetron 4 Mg/2 Ml Inj) 4 mg IV Q8H PRN PRN Reason: Nausea And Vomiting Oxycodone/Acetaminophen (Oxycodone /Acetaminophen 5-325mg Tab) 1 tab PO Q6H PRN PRN Reason: Pain, Moderate (4-6) Sodium Chloride (Sodium Chloride 0.9% 10 Ml Flush Syringe) 10 ml IV BID LOGAN Last Admin: 03/02/22 23:09 Dose: 10 ml Sodium Chloride (Sodium Chloride 0.9% 10 Ml Flush Syringe) 10 ml IV PRN PRN PRN Reason: LINE FLUSH Sodium Chloride (Sodium Chloride 0.9% 10 Ml Flush Syringe) 10 ml IV PRN PRN PRN Reason: LINE FLUSH Review of Systems All systems: negative (10 point ROS performed and negative except for that listed in HPI) Exam Vital Signs Temp Pulse Resp BP Pulse Ox 98.5 F 92 H 16 150/90 98 03/02/22 11:13 03/02/22 11:13 03/02/22 11:13 03/02/22 11:13 03/02/22 11:13 Narrative exam: Gen.: Awake, alert, oriented x3. No apparent distress ENT: Trachea midline. No lymphadenopathy. No scleral icterus or conjunctival pallor CV: S1, S2 present Respiratory: No audible wheezes Abdomen: Soft, nondistended, mild LUQ TTP. Healed midline and RLQ abdominal scar. No rebound, rigidity, guarding Extremities: No clubbing, cyanosis, edema Results - Labs 03/03/22 04:30 03/03/22 04:30 Abnormal lab results 03/02/22 03/02/22 03/03/22 Range/Units 14:32 Unknown 04:30 Hgb 9.2 L (10.1-14.3) gm/dl Hct 29.9 L (30.3-42.9) % MCV 73 L 72 L (79-97) fl MCH 22 L 22 L (28-32) pg RDW 18.6 H 18.9 H (13.2-15.2) % Lymph % (Auto) 7.5 L (13.4-35.0) % [place] % (Auto) 7.6 H (0.0-7.3) % Lymph # (Auto) 0.8 L (1.2-5.4) K/mm3 Seg Neutrophils % 89.8 H (40.0-70.0) % Seg Neutrophils # 9.1 H (1.8-7.7) K/mm3 Glucose (65-100) mg/dL Urine WBC (Auto) 130.0 H (0.0-6.0) /HPF U Epithel Cells (Auto) 78.0 H (0-13.0) /HPF 06/24/22 Range/Units 04:30 Hgb (10.1-14.3) gm/dl Hct (30.3-42.9) % MCV (79-97) fl MCH (28-32) pg RDW (13.2-15.2) % Lymph % (Auto) (13.4-35.0) % [place]ley % (Auto) (0.0-7.3) % Lymph # (Auto) (1.2-5.4) K/mm3 Seg Neutrophils % (40.0-70.0) % Seg Neutrophils # (1.8-7.7) K/mm3 Glucose 114 H (65-100) mg/dL Urine WBC (Auto) (0.0-6.0) /HPF U Epithel Cells (Auto) (0-13.0) /HPF Diabetes panel 03/02/22 03/03/22 Range/Units 14:32 04:30 Sodium 138 137 (137-145) mmol/L Potassium 4.2 4.2 (3.6-5.0) mmol/L Chloride 105.8 103.7 (98-107) mmol/L Carbon Dioxide 22 24 (22-30) mmol/L BUN 14 11 (7-17) mg/dL Creatinine 1.0 0.6 (0.6-1.2) mg/dL Glucose 91 114 H (65-100) mg/dL Calcium 9.0 8.7 (8.4-10.2) mg/dL AST 13 13 (5-40) units/L ALT 9 9 (7-56) units/L Alkaline Phosphatase 73 81 (35-129) units/L Total Protein 7.7 7.9 (6.3-8.2) g/dL Albumin 4.4 4.2 (3.9-5) g/dL Calcium panel 03/02/22 03/03/22 Range/Units 14:32 04:30 Calcium 9.0 8.7 (8.4-10.2) mg/dL Albumin 4.4 4.2 (3.9-5) g/dL Pituitary panel 03/02/22 03/03/22 Range/Units 14:32 04:30 Sodium 138 137 (137-145) mmol/L Potassium 4.2 4.2 (3.6-5.0) mmol/L Chloride 105.8 103.7 (98-107) mmol/L Carbon Dioxide 22 24 (22-30) mmol/L BUN 14 11 (7-17) mg/dL Creatinine 1.0 0.6 (0.6-1.2) mg/dL Glucose 91 114 H (65-100) mg/dL Calcium 9.0 8.7 (8.4-10.2) mg/dL Adrenal panel 03/02/22 03/03/22 Range/Units 14:32 04:30 Sodium 138 137 (137-145) mmol/L Potassium 4.2 4.2 (3.6-5.0) mmol/L Chloride 105.8 103.7 (98-107) mmol/L Carbon Dioxide 22 24 (22-30) mmol/L BUN 14 11 (7-17) mg/dL Creatinine 1.0 0.6 (0.6-1.2) mg/dL Glucose 91 114 H (65-100) mg/dL Calcium 9.0 8.7 (8.4-10.2) mg/dL Total Bilirubin 0.20 0.40 (0.1-1.2) mg/dL AST 13 13 (5-40) units/L ALT 9 9 (7-56) units/L Alkaline Phosphatase 73 81 (35-129) units/L Total Protein 7.7 7.9 (6.3-8.2) g/dL Albumin 4.4 4.2 (3.9-5) g/dL - Imaging CT scan - abdomen: report reviewed, image reviewed CT scan - pelvis: report reviewed, image reviewed Assessment and Plan 41 yo F with 1. pSBO 2. hx of open cholecystectomy and appendectomy 3. UTI Patient seen. Symptoms improved. Afebrile, VSS. WBC normal Obs series 03/03/22 - prominent short segment of small bowel loop in mid abdomen, unchanged. Stool and air in colon. Plan: 1. NPO 2. IVF 3. abx per 1' service 4. prn pain and nausea control 5. Explained the results of CT scan abdomen pelvis the patient. Explained that bowel obstruction is likely from scar tissue from her multiple previous abdominal surgeries. Explained the importance of NG tube decompression. Patient is willing to try to have NG tube placed again. Explained to patient that if NG tube cannot be placed in her symptoms worsen or if obstruction does not resolve with NG tube decompression, may need to consider surgical intervention. She understands and all questions answered. 6. FAMILIA in a.m. Discussed with Dr. Fisher D/W Patient's compensation programs manager at patient's request Thank you for this consultation. Please call with any questions or concerns. Evaluation and treatment of this patient was during the time of the national and state emergency arising from COVID19 coronavirus pandemic. Treatment and proced ures performed meet the current and available best practice and guidelines for patient during the COVID pandemic.
[2022-03-03] MEDS ORDERED: MORPHINE 2 MG/1 ML INJ IV PRN (11:00)
--- NOTE | 2022-03-03 11:02 | XRay Report ---
ABDOMEN 1 VIEW 03/03/2022 10:26 AM INDICATION / CLINICAL INFORMATION: verify NG tube placement. . COMPARISON: Earlier today. FINDINGS: TUBES / LINES: NG tube tip is in the gastric fundus. Side-port is also within the stomach. BOWEL GAS PATTERN: There is a paucity of small bowel gas which limits evaluation of the bowel gas pat tern. FREE AIR / EXTRALUMINAL GAS: None. ADDITIONAL FINDINGS: No significant additional findings. IMPRESSION: 1. Nasogastric tube in satisfactory position. 2. Paucity of small bowel gas limits evaluation of the small bowel gas pattern. Signer Name: Dane Alford MD Signed: 03/03/2022 10:58 AM Workstation Name: [id number]
[2022-03-03] MEDS ORDERED: ONDANSETRON 4 MG/2 ML INJ IV PRN (13:00)
--- NOTE | 2022-03-03 13:52 | Electrocardiograph Report ---
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
[2022-03-03] MEDS: SODIUM CHLORIDE 0.9% 1000 ML 1,000 ML IV SCH (21:00)
[2022-03-04] MEDS: SODIUM CHLORIDE 0.9% 1000 ML 1,000 ML IV SCH ×2 (06:10→17:10)
[2022-03-04 06:53] LABS: Hematocrit 31.1 % (30.3-42.9); Hemoglobin 9.5 gm/dl (10.1-14.3); Mean Corpuscular HGB Conc 30 % (30-34); Mean Corpuscular Volume 73 fl (79-97); Platelet Count 320 K/mm3 (140-440); Red Blood Count 4.28 M/mm3 (3.65-5.03); Red Cell Distribution Width 17.5 % (13.2-15.2)
[2022-03-04 07:44] LABS: BUN/Creatinine Ratio 10; Blood Urea Nitrogen 9 mg/dL (7-17); Calcium 8.2 mg/dL (8.4-10.2); Hemolysis Index 11
--- NOTE | 2022-03-04 08:29 | XRay Report ---
ABDOMEN AP SUPINE [id number] INDICATION: sbo COMPARISON: 03/03/2022 FINDINGS: Nasogastric tube is coiled in the stomach. Gas and stool are seen in the colon. No bowel di latation is obvious. I do not see an obvious obstructive pattern. No urinary tract calculi seen. Signer Name: Doyle Jamison MD Signed: 03/04/2022 8:25 AM Workstation Name: [id number]
--- NOTE | 2022-03-04 08:33 | Progress Note ---
Assessment and Plan Assessment and plan: --Small bowel obstruction Surgery team consulted in ED, bowel rest, IV fluid resuscitation therapy, Serial x-ray abdomen /KUB , per surgery Surgery recommended to start clear liquids today Follow-up abdominal x-ray tomorrow morning. Ambulate as tolerated -- Intractable nausea and vomiting Antiemetic therapy, bowel rest, IV fluid resuscitation therapy. --Urinary tract infection; polyuria Empiric antibiotics with Rocephin Urine cultures IV fluids and supportive care --Obesity (BMI 30.0-34.9) Diet modification, exercise as tolerated and weight reduction When medically stable --DVT prophylaxis Subcu Lovenox --Advance care planning Disease education data, care plan discussed, diagnosis discussed, prognosis discussed, patient is full code. Patient acknowledged understanding and agreed with care plan, +30 minutes. -- Preventive health care Patient counseled regarding balanced diet, increase physical activity discharge, weight reduction. Patient instructed to follow-up with primary care physician for all age and risk factor appropriate screening test. +30 minutes. Closely monitor the patient and adjust management as needed Plan of care reviewed with the patient and her nurse I also discussed the case with surgeon Dr. Sanches Follow abdominal x-ray tomorrow 03/03/2022; partial small bowel obstruction, n.p.o. status IV fluids, serial abdominal x-ray, follow surgery recommendations Possible discharge in 1 to 2 days if stable 03/04/2022; patient started on clear liquids per surgery Advance as tolerated, clamped NG tube, surgery following History Interval history: Seen and examined the patient at the bedside this morning Patient's chart and medications reviewed Patient states he feels better and wants to eat food Discussed with surgeon Dr. Guerra Advised clear liquids and clamp NG tube Follow x-ray abdomen tomorrow morning Patient's vital signs noted Hospitalist Physical - Constitutional Vitals: Temp Pulse Resp BP Pulse Ox 99.1 F 69 18 108/61 97 03/04/22 06:14 03/04/22 06:14 03/04/22 06:14 03/04/22 06:14 03/04/22 08:17 General appearance: Present: mild distress, well-nourished, obese - EENT Eyes: Present: PERRL, EOM intact - Neck Neck: Present: supple, normal ROM - Respiratory Respiratory effort: normal Respiratory: bilateral: diminished, negative: rales, rhonchi, wheezing - Cardiovascular Rhythm: regular Heart Sounds: Present: S1 & S2 - Extremities Extremities: no ischemia, No edema - Abdominal General gastrointestinal: soft, non-tender, non-distended, hypoactive bowel sounds - Integumentary Integumentary: Present: clear, warm - Psychiatric Psychiatric: appropriate mood/affect, cooperative - Neurologic Neurologic: CNII-XII intact, moves all extremities Results - Labs CBC & Chem 7: 03/04/22 05:57 03/04/22 05:57 Labs: Laboratory Last Values WBC 6.3 K/mm3 (4.5-11.0) 03/04/22 05:57 RBC 4.28 M/mm3 (3.65-5.03) 03/04/22 05:57 Hgb 9.5 gm/dl (10.1-14.3) L 03/04/22 05:57 Hct 31.1 % (30.3-42.9) 03/04/22 05:57 MCV 73 fl (79-97) L 03/04/22 05:57 MCH 22 pg (28-32) L 03/04/22 05:57 MCHC 30 % (30-34) 03/04/22 05:57 RDW 17.5 % (13.2-15.2) H 03/04/22 05:57 Plt Count 320 K/mm3 (140-440) 03/04/22 05:57 Lymph % (Auto) 7.5 % (13.4-35.0) L 03/03/22 04:30 [place] % (Auto) 2.5 % (0.0-7.3) 03/03/22 04:30 Eos % (Auto) 0.0 % (0.0-4.3) 03/03/22 04:30 Baso % (Auto) 0.2 % (0.0-1.8) 03/03/22 04:30 Lymph # (Auto) 0.8 K/mm3 (1.2-5.4) L 03/03/22 04:30 [place] # (Auto) 0.3 K/mm3 (0.0-0.8) 03/03/22 04:30 Eos # (Auto) 0.0 K/mm3 (0.0-0.4) 03/03/22 04:30 Baso # (Auto) 0.0 K/mm3 (0.0-0.1) 03/03/22 04:30 Seg Neutrophils % 89.8 % (40.0-70.0) H 03/03/22 04:30 Seg Neutrophils # 9.1 K/mm3 (1.8-7.7) H 03/03/22 04:30 Sodium 141 mmol/L (137-145) 03/04/22 05:57 Potassium 3.5 mmol/L (3.6-5.0) L 03/04/22 05:57 Chloride 105.5 mmol/L (98-107) 03/04/22 05:57 Carbon Dioxide 22 mmol/L (22-30) 03/04/22 05:57 Anion Gap 17 mmol/L 03/04/22 05:57 BUN 9 mg/dL (7-17) 03/04/22 05:57 Creatinine 0.9 mg/dL (0.6-1.2) 03/04/22 05:57 Estimated GFR > 60 ml/min 03/04/22 05:57 BUN/Creatinine Ratio 10 % 03/04/22 05:57 Glucose 74 mg/dL (65-100) 03/04/22 05:57 Calcium 8.2 mg/dL (8.4-10.2) L 03/04/22 05:57 Phosphorus 2.40 mg/dL (2.5-4.5) L 03/04/22 05:57 Magnesium 2.10 mg/dL (1.7-2.3) 03/04/22 05:57 Total Bilirubin 0.40 mg/dL (0.1-1.2) 03/03/22 04:30 Direct Bilirubin < 0.2 mg/dL (0-0.2) 03/02/22 14:32 Indirect Bilirubin 0.0 mg/dL 03/02/22 14:32 AST 13 units/L (5-40) 03/03/22 04:30 ALT 9 units/L (7-56) 03/03/22 04:30 Alkaline Phosphatase 81 units/L (35-129) 03/03/22 04:30 Total Protein 7.9 g/dL (6.3-8.2) 03/03/22 04:30 Albumin 4.2 g/dL (3.9-5) 03/03/22 04:30 Albumin/Globulin Ratio 1.1 % 03/03/22 04:30 Lipase 28 units/L (13-60) 03/02/22 14:32 HCG, Qual Negative (Negative) 03/02/22 14:32 Urine Color Yellow (Yellow) 03/02/22 Unknown Urine Turbidity Clear (Clear) 03/02/22 Unknown Urine pH 5.0 (5.0-7.0) 03/02/22 Unknown Ur Specific [place] 1.025 (1.003-1.030) 03/02/22 Unknown Urine Protein <15 mg/dl mg/dL (Negative) 03/02/22 Unknown Urine Glucose (UA) 0.0 mg/dL (Negative) 03/02/22 Unknown Urine Ketones Negative mg/dL (Negative) 03/02/22 Unknown Urine Blood Negative (Negative) 03/02/22 Unknown Urine Nitrite Negative (Negative) 03/02/22 Unknown Urine Bilirubin Negative (Negative) 03/02/22 Unknown Urine Urobilinogen 0.0 mg/dL (<2.0) 03/02/22 Unknown Ur Leukocyte Esterase 2+ (Negative) 03/02/22 Unknown Urine WBC (Auto) 130.0 /HPF (0.0-6.0) H 03/02/22 Unknown Urine RBC (Auto) 19.0 /HPF (0.0-6.0) 03/02/22 Unknown U Epithel Cells (Auto) 78.0 /HPF (0-13.0) H 03/02/22 Unknown Urine Bacteria (Auto) 1+ /HPF (Negative) 03/02/22 Unknown Urine Yeast (Budding) 1+ /HPF 03/02/22 Unknown Microbiology: Microbiology 03/03/22 09:31 Peripheral/Venous Blood Culture - Preliminary Culture in Progress 03/03/22 09:31 Peripheral/Venous Blood Culture - Preliminary Culture in Progress [place]/IV: Voiding Method Toilet Active Medications - Current Medications Current Medications: Generic Name Dose Route Start Last Admin Trade Name Freq PRN Reason Stop Dose Admin Acetaminophen 650 mg 03/02/22 16:46 Acetaminophen 650 Mg Rect Supp HI Q4H PRN Pain MILD(1-3)/Fever >100.5/CHRISTIANSEN Acetaminophen 650 mg 03/02/22 16:49 Acetaminophen 325 Mg Tab PO Q4H PRN Pain MILD(1-3)/Fever >100.5/CHRISTIANSEN Albuterol 2.5 mg 03/02/22 16:46 Albuterol 2.5 Mg/3 Ml Nebu IH Q4HRT PRN Shortness Of Breath Hydromorphone HCl 0.5 mg 03/02/22 16:49 03/03/22 01:02 Hydromorphone 0.5 Mg/0.5 Ml Inj IV 0.5 mg Q3H PRN Administration Pain , Severe (7-10) Sodium Chloride 1,000 mls @ 125 mls/hr 03/02/22 17:00 03/04/22 06:10 Nacl 0.9% 1000 Ml IV 125 mls/hr DIRECT LOGAN Administration Ceftriaxone Sodium 2 gm in 100 mls @ 200 mls/hr 03/03/22 10:00 03/03/22 10:00 Rocephin/Ns 2 Gm/100 Ml IV 200 mls/hr Q24H LOGAN Administration Protocol Morphine Sulfate 2 mg 03/03/22 11:00 03/03/22 12:44 Morphine 2 Mg/1 Ml Inj IV 2 mg Q4H PRN Administration Pain, Moderate (4-6) Ondansetron HCl 4 mg 03/03/22 13:00 03/03/22 21:21 Ondansetron 4 Mg/2 Ml Inj IV 4 mg Q6H PRN Administration Nausea And Vomiting Sodium Chloride 10 ml 03/02/22 22:00 03/03/22 21:00 Sodium Chloride 0.9% 10 Ml Flush Syringe IV 10 ml BID LOGAN Administration Sodium Chloride 10 ml 03/02/22 16:46 Sodium Chloride 0.9% 10 Ml Flush Syringe IV PRN PRN LINE FLUSH Sodium Chloride 10 ml 03/02/22 16:49 Sodium Chloride 0.9% 10 Ml Flush Syringe IV PRN PRN LINE FLUSH Nutrition/Malnutrition Assess - Dietary Evaluation Nutrition/Malnutrition Findings: Nutrition Notes Start: 03/03/22 12:43 Freq: Status: Active Protocol: Document 03/03/22 12:43 KALYAN (Rec: 03/03/22 13:04 KALYAN [id number]) Nutrition Notes 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 Current Diet NPO (since 03/02 16:48). Labs/Tests 03/03: Glu 114. Pertinent Medications 03/03: Nutritionally unremarkable. Height 5 ft 9 in Weight 95.708 kg [place] Body Weight (kg) 65.90 BMI 31.1 Intake Prior to Admission Poor Weight change and time frame Pt states having loss, unintentionally, between 14 and 23 lb of body weight recently. Weight Status Obese Subjective/Other Information RD consult for risk of malnutrition assessment. Pt currently on NPO. Pt is on Room Air, O2 saturation @ 97%, according to Physical Assessment History notes. Pt shows signs of concern for risk of malnutrition associated with poor oral intake of meals and sudden body weight loss, according to Physical Assessment History notes; I will reassess at F/U when NPO is lifted and PO intake of meals resumed. Percent of energy/protein needs met: Pt currently on NPO. Burn Absent Trauma Absent GI Symptoms Nausea,Vomiting,Other Food Allergy No Skin Integrity/Comment Assessment WNL. 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 Is patient on ventilator? No Is Patient Ambulatory and/or Out of Bed Yes REE-([facility]-ambulatory/OOB) [ 2185.898 NUTR.MSJOOB] Kcal/Kg value to use for calculation 20 Approximate Energy Requirements Using 1914 kcal/Kg Calculation Used for Recommendations Kcal/kg Additional Notes Protein: 0.8-1 g/Kg AdjBW; 65- 81 g/day. Fluids: 1 ml/Kcal, or as per MD. Nutrition Intervention Change Diet Order: When pertinent, advance to Clear Liquids Diet, as tolerated. Goal #1 Adjust the dietary intervention to better serve Pt's needs and clinical conditions during LOS. Follow-Up By: 03/06/22 Additional Comments When pertinent, start monitoring food tolerance, %PO intake of meals, and BM.
[2022-03-04] MEDS: cefTRIAXone/NS 2 GM/100 ML 2 GM/100 ML BAG IV SCH (10:09)
--- NOTE | 2022-03-04 10:23 | Progress Note ---
Assessment and Plan Patient states that she is feeling better today and is hungry. Abdominal x-ray shows gas into the colon and rectum. Patient admits that she is having BMs and flatus at this time. Plan to clamp the NG tube try some ice chips this morning. Advance to clear liquids by this evening repeat abdominal x-ray in the morning. Subjective Date of service: 03/04/22 Patient Reports: Positive: no new complaints, feels better, flatus, bowel movement Narrative: Patient states that she is feeling better today and is hungry. Abdominal x-ray shows gas into the colon and rectum. Patient admits that she is having BMs and flatus at this time. Plan to clamp the NG tube try some ice chips this morning. Advance to clear liquids by this evening repeat abdominal x-ray in the morning. Objective Vital Signs - 12hr 03/03/22 03/04/22 03/04/22 23:00 06:14 08:17 Temperature 99.1 F Pulse Rate 69 Pulse Rate [ 68 Right Radial] Respiratory 17 18 Rate Blood Pressure 108/61 O2 Sat by Pulse 99 98 97 Oximetry - Labs 03/04/22 05:57 03/04/22 05:57 Diabetes panel 03/04/22 Range/Units 05:57 Sodium 141 (137-145) mmol/L Potassium 3.5 L (3.6-5.0) mmol/L Chloride 105.5 (98-107) mmol/L Carbon Dioxide 22 (22-30) mmol/L BUN 9 (7-17) mg/dL Creatinine 0.9 (0.6-1.2) mg/dL Glucose 74 (65-100) mg/dL Calcium 8.2 L (8.4-10.2) mg/dL Calcium panel 03/04/22 Range/Units 05:57 Calcium 8.2 L (8.4-10.2) mg/dL Phosphorus 2.40 L (2.5-4.5) mg/dL Pituitary panel 03/04/22 Range/Units 05:57 Sodium 141 (137-145) mmol/L Potassium 3.5 L (3.6-5.0) mmol/L Chloride 105.5 (98-107) mmol/L Carbon Dioxide 22 (22-30) mmol/L BUN 9 (7-17) mg/dL Creatinine 0.9 (0.6-1.2) mg/dL Glucose 74 (65-100) mg/dL Calcium 8.2 L (8.4-10.2) mg/dL Adrenal panel 03/04/22 Range/Units 05:57 Sodium 141 (137-145) mmol/L Potassium 3.5 L (3.6-5.0) mmol/L Chloride 105.5 (98-107) mmol/L Carbon Dioxide 22 (22-30) mmol/L BUN 9 (7-17) mg/dL Creatinine 0.9 (0.6-1.2) mg/dL Glucose 74 (65-100) mg/dL Calcium 8.2 L (8.4-10.2) mg/dL
[2022-03-04] MEDS ORDERED: POTASSIUM PHOSPHATE 15 MMOL in SODIUM CHLORIDE 0.9% 250ML 250 ML IV ONE (17:00)
[2022-03-04] MEDS: ENOXAPARIN 40 MG/0.4 ML INJ SUB-Q SCH (22:32)
[2022-03-05] MEDS: SODIUM CHLORIDE 0.9% 1000 ML 1,000 ML IV SCH ×2 (06:41→17:10)
[2022-03-05 07:24] LABS: Blood Urea Nitrogen 6 mg/dL (7-17); Calcium 7.8 mg/dL (8.4-10.2); Hemolysis Index 3
[2022-03-05 07:29] LABS: BUN/Creatinine Ratio 9
--- NOTE | 2022-03-05 08:06 | XRay Report ---
Abdomen single view INDICATION: Abdominal pain. IMPRESSION: Single dilated loop of small bowel identified within the upper midline abdomen, similar t o 03/02/2022. No significant interval change. Signer Name: Dc Emery MD Signed: 03/05/2022 8:02 AM Workstation Name: [employer]
--- NOTE | 2022-03-05 08:12 | Progress Note ---
Assessment and Plan Patient states that she is feeling better today and is hungry. Abdominal x-ray shows gas into the colon and rectum. Patient admits that she is having BMs and flatus at this time. Nursing reports last night patient remove the NG tube herself. Abdominal x-ray reviewed this morning with possible increasing ileus. Continue observation with limited p.o. intake consider replacing NG tube if nausea and vomiting returns. Subjective Date of service: 03/05/22 Narrative: Nursing reports last night patient remove the NG tube herself. Abdominal x-ray reviewed this morning with possible increasing ileus. Continue observation with limited p.o. intake consider replacing NG tube if nausea and vomiting returns. Objective Vital Signs - 12hr 03/04/22 03/04/22 20:47 21:54 Temperature 99.3 F Pulse Rate 60 Respiratory 20 Rate Blood Pressure 111/51 O2 Sat by Pulse 97 100 Oximetry - Labs 03/05/22 06:22 03/05/22 06:22 Diabetes panel 03/05/22 Range/Units 06:22 Sodium 139 (137-145) mmol/L Potassium 3.1 L (3.6-5.0) mmol/L Chloride 105.9 (98-107) mmol/L Carbon Dioxide 23 (22-30) mmol/L BUN 6 L (7-17) mg/dL Creatinine 0.7 (0.6-1.2) mg/dL Glucose 81 (65-100) mg/dL Calcium 7.8 L (8.4-10.2) mg/dL Calcium panel 03/05/22 Range/Units 06:22 Calcium 7.8 L (8.4-10.2) mg/dL Phosphorus 2.30 L (2.5-4.5) mg/dL Pituitary panel 03/05/22 Range/Units 06:22 Sodium 139 (137-145) mmol/L Potassium 3.1 L (3.6-5.0) mmol/L Chloride 105.9 (98-107) mmol/L Carbon Dioxide 23 (22-30) mmol/L BUN 6 L (7-17) mg/dL Creatinine 0.7 (0.6-1.2) mg/dL Glucose 81 (65-100) mg/dL Calcium 7.8 L (8.4-10.2) mg/dL Adrenal panel 03/05/22 Range/Units 06:22 Sodium 139 (137-145) mmol/L Potassium 3.1 L (3.6-5.0) mmol/L Chloride 105.9 (98-107) mmol/L Carbon Dioxide 23 (22-30) mmol/L BUN 6 L (7-17) mg/dL Creatinine 0.7 (0.6-1.2) mg/dL Glucose 81 (65-100) mg/dL Calcium 7.8 L (8.4-10.2) mg/dL
[2022-03-05] MEDS: cefTRIAXone/NS 1 GM/50 ML 1 GM/50 ML BAG IV SCH (09:17)
[2022-03-05] MEDS ORDERED: POTASSIUM CHLORIDE ER 20 MEQ TAB PO ONE ×2 (10:04→11:30)
[2022-03-05] MEDS ORDERED: POTASSIUM CHLORIDE ER 20 MEQ TAB PO SCH (11:00)
--- NOTE | 2022-03-05 12:38 | Cat Scan Report ---
CT ABDOMEN AND PELVIS WITHOUT CONTRAST INDICATION / CLINICAL INFORMATION: history of SBO. Abdominal pain TECHNIQUE: Axial CT images were obtained through the abdomen and pelvis without IV contrast. All CT scans at [facility] location are performed using CT dose reduction for ALARA by means of automated exposure control. COMPARISON: 03/02/2022 FINDINGS: Abdomen and pelvis: Previously identified area of small bowel obstruction is no longer well identified. Contrast is ident ified within the distal small bowel and proximal colon. The liver again demonstrates pneumobilia unch anged. The spleen, pancreas adrenal glands and kidneys are unchanged. Small fat-containing periumbili carmelina hernia. Urinary bladder and uterus appear unremarkable. IMPRESSION: No evidence of small bowel obstruction when compared to 03/02/2022. Signer Name: Dc Emery MD Signed: 03/05/2022 12:33 PM Workstation Name: [employer]
--- NOTE | 2022-03-05 17:19 | Progress Note ---
Assessment and Plan Assessment and plan: --Hypokalemia; potassium 3.1 Replenished with oral KCl 20 mEq x 1 and 40 mEq x 1 total 60 mEq Closely monitor electrolytes --Hypophosphatemia; Replenished with low-dose K-Phos Monitor electrolytes --Small bowel obstruction; Surgery following NG tube is out NG tube is out[patient removed it last night] Serial x-ray abdomen /KUB , reviewed Surgery recommended to start clear liquids today And CT abdomen and pelvis which is pending Continue supportive care -- Intractable nausea and vomiting Slightly improved ,antiemetic therapy, clear liquids --Urinary tract infection; polyuria Empiric antibiotics with Rocephin Urine cultures negative to date --Obesity (BMI 30.0-34.9) Diet modification, exercise as tolerated and weight reduction When medically stable --DVT prophylaxis ;Subcu Lovenox --Advance care planning;[I spent 33 minutes today 03/05/2022] Disease education data, care plan discussed, diagnosis discussed, prognosis discussed, patient is full code. Patient acknowledged understanding and agreed with care plan, I also discussed findings of daily serial x-ray abdomen The need for CT abdomen and pelvis today, answered all her questions -- Preventive health care; [I spent 32 min today 03/05/2022] Patient counseled regarding balanced diet, increase physical activity discharge, weight reduction. Patient instructed to follow-up with primary care physician for all age and risk factor appropriate screening test. Patient advised diet modification, exercise as tolerated and weight reduction when medically stable Risks and sequelae of overweight explained to the patient, she verbalized understanding Closely monitor the patient and adjust management as needed Plan of care reviewed with the patient and her nurse I also discussed the case with surgeon Dr. Guerra Brief history and daily Hospital course: 41-year-old female patient with significant past medical history of open cholecystectomy, open appendectomy was admitted through emergency room with 1 day history of abdominal pain initial work-up findings consistent with small bowel obstruction evaluated by surgery team patient had NG tube with intermittent suction and n.p.o. status Patient had serial abdominal x-rays daily today patient had mild improvement surgical team started clear liquids and requested CT abdomen and pelvis 03/03/2022; partial small bowel obstruction, n.p.o. status IV fluids, serial abdominal x-ray, follow surgery recommendations Possible discharge in 1 to 2 days if stable 03/04/2022; patient started on clear liquids per surgery Advance as tolerated, clamped NG tube, surgery following 03/05/2022; patient removed NG tube last night Surgeon recommended clear liquids as tolerated, and requested CT abdomen and pelvis Patient has hypokalemia, replenished with oral KCl Hypophosphatemia, replenished with low-dose IV phosphate Advance care plan/preventive health care plan discussed in detail today Closely monitor the patient and adjust the management as needed Advise increase ambulation, follow CT abdomen, follow surgeon's recommendations Possible discharge in 1 to 2 days if stable History Interval history: I have seen and examined the patient at the bedside this morning Patient's chart and medications reviewed Patient has removed NG tube last night Patient has flatus and bowel movement Feels slightly better wants to eat Surgery started clear liquids as tolerated Vital signs noted Hospitalist Physical - Constitutional Vitals: Temp Pulse Resp BP Pulse Ox 98.1 F 77 16 123/73 97 03/05/22 10:53 03/05/22 10:53 03/05/22 10:53 03/05/22 10:53 03/05/22 10:53 General appearance: Present: mild distress, well-nourished, obese - EENT Eyes: Present: PERRL, EOM intact - Neck Neck: Present: supple, normal ROM - Respiratory Respiratory effort: normal Respiratory: bilateral: diminished, negative: rales, rhonchi, wheezing - Cardiovascular Rhythm: regular Heart Sounds: Present: S1 & S2 - Extremities Extremities: no ischemia, No edema - Abdominal General gastrointestinal: soft, non-tender, non-distended, normal bowel sounds - Integumentary Integumentary: Present: clear, warm - Psychiatric Psychiatric: appropriate mood/affect, cooperative - Neurologic Neurologic: moves all extremities Results - Labs CBC & Chem 7: 03/05/22 06:22 03/05/22 06:22 Labs: Laboratory Last Values WBC 6.3 K/mm3 (4.5-11.0) 03/04/22 05:57 RBC 4.28 M/mm3 (3.65-5.03) 03/04/22 05:57 Hgb 9.0 gm/dl (10.1-14.3) L 03/05/22 06:22 Hct 29.0 % (30.3-42.9) L 03/05/22 06:22 MCV 73 fl (79-97) L 03/04/22 05:57 MCH 22 pg (28-32) L 03/04/22 05:57 MCHC 30 % (30-34) 03/04/22 05:57 RDW 17.5 % (13.2-15.2) H 03/04/22 05:57 Plt Count 320 K/mm3 (140-440) 03/04/22 05:57 Lymph % (Auto) 7.5 % (13.4-35.0) L 03/03/22 04:30 Republic % (Auto) 2.5 % (0.0-7.3) 03/03/22 04:30 Eos % (Auto) 0.0 % (0.0-4.3) 03/03/22 04:30 Baso % (Auto) 0.2 % (0.0-1.8) 03/03/22 04:30 Lymph # (Auto) 0.8 K/mm3 (1.2-5.4) L 03/03/22 04:30 Republic # (Auto) 0.3 K/mm3 (0.0-0.8) 03/03/22 04:30 Eos # (Auto) 0.0 K/mm3 (0.0-0.4) 03/03/22 04:30 Baso # (Auto) 0.0 K/mm3 (0.0-0.1) 03/03/22 04:30 Seg Neutrophils % 89.8 % (40.0-70.0) H 03/03/22 04:30 Seg Neutrophils # 9.1 K/mm3 (1.8-7.7) H 03/03/22 04:30 Sodium 139 mmol/L (137-145) 03/05/22 06:22 Potassium 3.1 mmol/L (3.6-5.0) L 03/05/22 06:22 Chloride 105.9 mmol/L (98-107) 03/05/22 06:22 Carbon Dioxide 23 mmol/L (22-30) 03/05/22 06:22 Anion Gap 13 mmol/L 03/05/22 06:22 BUN 6 mg/dL (7-17) L 03/05/22 06:22 Creatinine 0.7 mg/dL (0.6-1.2) 03/05/22 06:22 Estimated GFR > 60 ml/min 03/05/22 06:22 BUN/Creatinine Ratio 9 % 03/05/22 06: Glucose 81 mg/dL (65-100) 03/05/22 06:22 Calcium 7.8 mg/dL (8.4-10.2) L 03/05/22 06:22 Phosphorus 2.30 mg/dL (2.5-4.5) L 03/05/22 06:22 Magnesium 2.00 mg/dL (1.7-2.3) 03/05/22 06:22 Total Bilirubin 0.40 mg/dL (0.1-1.2) 03/03/22 04:30 Direct Bilirubin < 0.2 mg/dL (0-0.2) 03/02/22 14:32 Indirect Bilirubin 0.0 mg/dL 03/02/22 14:32 AST 13 units/L (5-40) 03/03/22 04:30 ALT 9 units/L (7-56) 03/03/22 04:30 Alkaline Phosphatase 81 units/L (35-129) 03/03/22 04:30 Total Protein 7.9 g/dL (6.3-8.2) 03/03/22 04:30 Albumin 4.2 g/dL (3.9-5) 03/03/22 04:30 Albumin/Globulin Ratio 1.1 % 03/03/22 04:30 Lipase 28 units/L (13-60) 03/02/22 14:32 HCG, Qual Negative (Negative) 03/02/22 14:32 Urine Color Yellow (Yellow) 03/02/22 Unknown Urine Turbidity Clear (Clear) 03/02/22 Unknown Urine pH 5.0 (5.0-7.0) 03/02/22 Unknown Ur Specific Conrad 1.025 (1.003-1.030) 03/02/22 Unknown Urine Protein <15 mg/dl mg/dL (Negative) 03/02/22 Unknown Urine Glucose (UA) 0.0 mg/dL (Negative) 03/02/22 Unknown Urine Ketones Negative mg/dL (Negative) 03/02/22 Unknown Urine Blood Negative (Negative) 03/02/22 Unknown Urine Nitrite Negative (Negative) 03/02/22 Unknown Urine Bilirubin Negative (Negative) 03/02/22 Unknown Urine Urobilinogen 0.0 mg/dL (<2.0) 03/02/22 Unknown Ur Leukocyte Esterase 2+ (Negative) 03/02/22 Unknown Urine WBC (Auto) 130.0 /HPF (0.0-6.0) H 03/02/22 Unknown Urine RBC (Auto) 19.0 /HPF (0.0-6.0) 03/02/22 Unknown U Epithel Cells (Auto) 78.0 /HPF (0-13.0) H 03/02/22 Unknown Urine Bacteria (Auto) 1+ /HPF (Negative) 03/02/22 Unknown Urine Yeast (Budding) 1+ /HPF 03/02/22 Unknown Microbiology: Microbiology 03/02/22 14:41 Urine,Clean Catch Urine Culture - Final NO GROWTH AFTER 48 HOURS 03/03/22 09:31 Peripheral/Venous Blood Culture - Preliminary NO GROWTH AFTER 48 HOURS 03/03/22 09:31 Peripheral/Venous Blood Culture - Preliminary NO GROWTH AFTER 48 HOURS Woodson/IV: Voiding Method Toilet Active Medications - Current Medications Current Medications: Generic Name Dose Route Start Last Admin Trade Name Freq PRN Reason Stop Dose Admin Acetaminophen 650 mg 03/02/22 16:46 Acetaminophen 650 Mg Rect Supp KS Q4H PRN Pain MILD(1-3)/Fever >100.5/CHRISTIANSEN Acetaminophen 650 mg 03/02/22 16:49 03/04/22 22:32 Acetaminophen 325 Mg Tab PO 650 mg Q4H PRN Administration Pain MILD(1-3)/Fever >100.5/CHRISTIANSEN Albuterol 2.5 mg 03/02/22 16:46 Albuterol 2.5 Mg/3 Ml Nebu IH Q4HRT PRN Shortness Of Breath Enoxaparin Sodium 40 mg 03/04/22 22:00 03/04/22 22:32 Enoxaparin 40 Mg/0.4 Ml Inj SUB-Q 40 mg QDAY@2200 LOGAN Administration Protocol Hydromorphone HCl 0.5 mg 03/02/22 16:49 03/03/22 01:02 Hydromorphone 0.5 Mg/0.5 Ml Inj IV 0.5 mg Q3H PRN Administration Pain , Severe (7-10) Sodium Chloride 1,000 mls @ 125 mls/hr 03/02/22 17:00 03/05/22 17:10 Nacl 0.9% 1000 Ml IV 125 mls/hr DIRECT LOGAN Administration Ceftriaxone Sodium 1 gm in 50 mls @ 100 mls/hr 03/05/22 10:00 03/05/22 09:17 Rocephin/Ns 1 Gm/50 Ml IV 100 mls/hr Q24H LOGAN Administration Morphine Sulfate 2 mg 03/03/22 11:00 03/03/22 12:44 Morphine 2 Mg/1 Ml Inj IV 2 mg Q4H PRN Administration Pain, Moderate (4-6) Ondansetron HCl 4 mg 03/03/22 13:00 03/03/22 21:21 Ondansetron 4 Mg/2 Ml Inj IV 4 mg Q6H PRN Administration Nausea And Vomiting Sodium Chloride 10 ml 03/02/22 22:00 03/05/22 09:18 Sodium Chloride 0.9% 10 Ml Flush Syringe IV 10 ml BID LOGAN Administration Sodium Chloride 10 ml 03/02/22 16:46 Sodium Chloride 0.9% 10 Ml Flush Syringe IV PRN PRN LINE FLUSH Sodium Chloride 10 ml 03/02/22 16:49 Sodium Chloride 0.9% 10 Ml Flush Syringe IV PRN PRN LINE FLUSH Nutrition/Malnutrition Assess - Dietary Evaluation Nutrition/Malnutrition Findings: Nutrition Notes Start: 03/03/22 12:43 Freq: Status: Active Protocol: Document 03/03/22 12:43 KALYAN (Rec: 03/03/22 13:04 KALYAN [id number]) Nutrition Notes 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 Current Diet NPO (since 03/02 16:48). Labs/Tests 03/03: Glu 114. Pertinent Medications 03/03: Nutritionally unremarkable. Height 5 ft 9 in Weight 95.708 kg Parker Body Weight (kg) 65.90 BMI 31.1 Intake Prior to Admission Poor Weight change and time frame Pt states having loss, unintentionally, between 14 and 23 lb of body weight recently. Weight Status Obese Subjective/Other Information RD consult for risk of malnutrition assessment. Pt currently on NPO. Pt is on Room Air, O2 saturation @ 97%, according to Physical Assessment History notes. Pt shows signs of concern for risk of malnutrition associated with poor oral intake of meals and sudden body weight loss, according to Physical Assessment History notes; I will reassess at F/U when NPO is lifted and PO intake of meals resumed. Percent of energy/protein needs met: Pt currently on NPO. Burn Absent Trauma Absent GI Symptoms Nausea,Vomiting,Other Food Allergy No Skin Integrity/Comment Assessment WNL. 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 Is patient on ventilator? No Is Patient Ambulatory and/or Out of Bed Yes REE-([facility]-ambulatory/OOB) [ 2185.898 [id number]] Kcal/Kg value to use for calculation 20 Approximate Energy Requirements Using 1914 kcal/Kg Calculation Used for Recommendations Kcal/kg Additional Notes Protein: 0.8-1 g/Kg AdjBW; 65- 81 g/day. Fluids: 1 ml/Kcal, or as per MD. Nutrition Intervention Change Diet Order: When pertinent, advance to Clear Liquids Diet, as tolerated. Goal #1 Adjust the dietary intervention to better serve Pt's needs and clinical conditions during LOS. Follow-Up By: 03/06/22 Additional Comments When pertinent, start monitoring food tolerance, %PO intake of meals, and BM.
[2022-03-05] MEDS: ENOXAPARIN 40 MG/0.4 ML INJ SUB-Q SCH (21:55)
[2022-03-06] MEDS: SODIUM CHLORIDE 0.9% 1000 ML 1,000 ML IV SCH ×2 (02:00→12:04)
[2022-03-06 05:32] LABS: Blood Urea Nitrogen 4 mg/dL (7-17); Calcium 8.1 mg/dL (8.4-10.2); Hemolysis Index 2
[2022-03-06 05:43] LABS: BUN/Creatinine Ratio 7
[2022-03-06] MEDS: cefTRIAXone/NS 1 GM/50 ML 1 GM/50 ML BAG IV SCH (12:03)
--- NOTE | 2022-03-06 12:13 | Discharge Summary ---
Providers - Providers Date of Admission: 03/02/22 16:49 Date of discharge: 03/06/22 Attending physician: RICK ARAGON 03/03/22 09:21 Consult to Physician [CONS] Routine Comment: Consulting Provider: TYRA DEMPSEY Physician Instructions: Reason For Exam: Small bowel obstruction Primary care physician: KAHLIL KENNEDY Hospitalization Reason for admission: Abdominal pain with nausea no vomiting 1 day duration Condition: Good Pertinent studies: CT abdomen and pelvis 03/02/2022 Serial chest and abdominal x-rays 03/03, 03/04, 03/05, CT abdomen and pelvis 03/05 Hospital course: 39-year-old obese female patient was admitted through emergency room with abdominal pain of sudden onset 1 day duration associated with nausea but no vomiting initial work-up in the ED on CT scan shows small bowel obstruction complicated by intractable nausea vomiting patient was admitted to the medical floor placed on n.p.o. status and NG tube placement and intermittent suction subsequently evaluated by surgeon symptomatically managed gradually started clear liquidspatient tolerated that advance the diet to full liquids today repeat CT scan done yesterday showed resolution of small bowel obstruction Surgeon advance diet to full liquids today , she tolerated full liquids Surgeon cleared for discharge on full liquids for 2 to 3 days and then advance slowly as tolerated Patient was advised to follow with primary care physician in 5 to 7 days and later follow private surgeon per schedule Patient is hemodynamically and clinically stable at discharge Discharge diagnosis: --Hypokalemia; potassium 3.1 Replenished with oral KCl 20 mEq x 1 and 40 mEq x 1 total 60 mEq Closely monitor electrolytes --Hypophosphatemia; Replenished with low-dose K-Phos Monitor electrolytes --Small bowel obstruction; Surgery following NG tube is out NG tube is out[patient removed it last night] Serial x-ray abdomen /KUB , reviewed Surgery recommended to start clear liquids today And CT abdomen and pelvis which is pending Continue supportive care -- Intractable nausea and vomiting Slightly improved ,antiemetic therapy, clear liquids --Urinary tract infection; polyuria Empiric antibiotics with Rocephin Urine cultures negative to date --Obesity (BMI 30.0-34.9) Diet modification, exercise as tolerated and weight reduction When medically stable Cleared by surgeon continue full liquids for next 2 to 3 days, and if patient tolerates Then advance the diet to soft, follow-up with primary care physician and private surgeon per schedule Patient stable at discharge Disposition: 01 HOME / SELF CARE / HOMELESS Final Discharge Diagnosis (Prints w/discharge instructions): Hypokalemia resolved. Hypophosphatemia corrected. Small bowel obstruction resolved. Intractable nausea vomiting improved. Obesity BMI 31.0[advised weight reduction] Time spent for discharge: 35 minutes Core Measure Documentation - Palliative Care Palliative Care/ Comfort Measures: Not Applicable - Core Measures Any of the following diagnoses?: none Exam - Constitutional Vitals: Temp Pulse Resp BP Pulse Ox 98.6 F 60 18 132/65 97 03/05/22 22:00 03/05/22 22:00 03/05/22 22:00 03/05/22 22:00 03/06/22 08:00 General appearance: Present: no acute distress, well-nourished - EENT Eyes: Present: PERRL, EOM intact - Neck Neck: Present: supple, normal ROM - Respiratory Respiratory effort: normal Respiratory: bilateral: diminished, negative: rales, rhonchi, wheezing - Cardiovascular Rhythm: regular Heart Sounds: Present: S1 & S2 - Extremities Extremities: no ischemia, No edema - Abdominal General gastrointestinal: Present: soft, non-tender, non-distended - Integumentary Integumentary: Present: clear, warm - Musculoskeletal Musculoskeletal: strength equal bilaterally - Psychiatric Psychiatric: appropriate mood/affect, cooperative - Neurologic Neurologic: CNII-XII intact, moves all extremities Plan Activity: advance as tolerated, other (Ambulate as tolerated) Diet: advance as tolerated, other (Full liquid diet) Additional Instructions: Advised 4 days work excuse from 03/07/2022 -03/10/2022. May return to work after long weekend on 03/14/2022 if stable. Surgeon advised full liquid diet, advance to soft diet in 2 to 3 days as tolerated. If you have worsening symptoms or recurrent symptoms contact MD or go to the nearest emergency room as needed. Follow-up with your primary care physician per schedule, private surgeon if needed Follow up with: KAHLIL KENNEDY MD [Primary Care Provider] - 7 Days Forms: Work/School Release Form Prescriptions: Dicyclomine [Bentyl] 10 mg PO TID PRN #15 capsule PRN Reason: Pain , Severe (7-10) Famotidine [Pepcid] 10 mg PO BID #20 tablet Ondansetron [Zofran Odt] 4 mg PO Q8HR #15 tab.[email or web address]
[2022-03-06 12:17] VITALS: BP 135/78
== END 2022-03-06 16:47 | disposition home or self-care (01) | DRG 389 ==
LOC: ED 11:12 → 3A 16:49
PROVIDERS: ADMIT Internal Medicine; ATTEND Internal Medicine
PROC: 0D9670Z Drainage of Stomach with Drainage Device, Via Natural or Artificial Opening (ICD-10-PCS; principal; 2022-03-02)
DX: K56.600 Partial intestinal obstruction, unspecified as to cause (principal); N39.0 Urinary tract infection, site not specified; E66.9 Obesity, unspecified; Z68.31 Body mass index [BMI] 31.0-31.9, adult; E87.6 Hypokalemia; E83.39 Other disorders of phosphorus metabolism; Z82.49 Family history of ischemic heart disease and other diseases of the circulatory system; Z90.49 Acquired absence of other specified parts of digestive tract
CPT/HCPCS: 36415; 74018; 74022; 74176; 74177; 80048; 80053; 80076; 81001; 83690; 83735; 84100; 84703; 85014; 85018; 85025; 85027; 87040; 87086; 93005; G0378; J7510; J0696; J1170; J1650; J2270; J2405; J7030; J7050; Q9967